=== PATIENT | female | born 1990 | race Caucasian/White ===

== ENCOUNTER 2019-05-14 22:31 | Emergency (ER) | payer MEDICAID, OTHER ==
[~2019-05-14] VITALS: Ht 177.8 cm; Wt 83.7 kg
[2019-05-14 22:36] VITALS: BP 119/84
== END 2019-05-15 00:10 | disposition home or self-care (01) ==
LOC: ED 23:30
DX: J02.8 Acute pharyngitis due to other specified organisms (principal); B34.9 Viral infection, unspecified
CPT/HCPCS: 71046; 99283